=== PATIENT | female | born 1955 | race Caucasian/White ===

== ENCOUNTER 2018-02-26 15:49 | Emergency (ER) | payer BC ==
[2018-02-26] MEDS ORDERED: Cyclobenzaprine 10 MG TAB ONE (16:24)
[2018-02-26] MEDS ORDERED: Ketorolac Tromethamine 60 MG/2 ML VIAL ONE (16:24)
== END 2018-02-26 16:30 | disposition home or self-care (01) ==
LOC: BURERS 15:49
DX: M54.5 Low back pain (principal); F41.9 Anxiety disorder, unspecified; F17.210 Nicotine dependence, cigarettes, uncomplicated; I10 Essential (primary) hypertension
CPT/HCPCS: 96372; J1885